=== PATIENT | male | born 2000 | race Caucasian/White ===

== ENCOUNTER 2020-11-11 03:29 | Emergency (ER) | payer MEDICAID, OTHER ==
[~2020-11-11] VITALS: Ht 182.9 cm; Wt 65.8 kg
[2020-11-11 04:37] LABS: Urine Bacteria FEW /hpf (None Seen); Urine Blood Negative /uL (Negative); Urine Mucus FEW (None Seen); Urine Specific Gravity 1.023 (1.001-1.035); Urine WBC 3 /hpf (0 - 3)
[2020-11-11 07:48] LABS: Basophils # (auto) 0 10 ^3/uL (0-0.2); Basophils % (auto) 0.1 % (0.0-2.0); Eosinophils # (auto) 0 10 ^3/uL (0-0.8); Hematocrit 45.7 % (41.0-53.0); Hemoglobin 15.2 g/dL (13.5-17.5); Lymphocytes # (auto) 1.1 10 ^3/uL (0.4-5.4); Lymphocytes % (auto) 5.2 % (10.0-50.0); Mean Corpuscular Hemoglobin 28.1 pg (28.0-32.0); Mean Corpuscular Hgb Conc. 33.3 g/dL (32.0-36.0); Mean Corpuscular Volume 84.3 fL (80.0-100.0); Monocytes # (auto) 1.1 10 ^3/uL (0-1.3); Neutrophils # (auto) 19.1 10 ^3/uL (1.6-8.6); Neutrophils % (auto) 89.7 % (37.0-80.0); Nucleated Red Blood Cells % 0.1 %; Red Blood Cells 5.42 10^6/uL (4.5-5.90); Red Cell Distribution Width 12.8 % (11.8-14.3); White Blood Cell 21.3 10^3/uL (4.4-10.8)
[2020-11-11 08:30] LABS: Albumin 4.4 g/dL (3.4-5.0); Calcium 9.5 mg/dL (8.5-10.1); Potassium 4.1 mmol/L (3.5-5.1)
[2020-11-11 08:42] LABS: Bilirubin, Total 0.8 mg/dL (0.2-1.0); Total Protein 8.1 g/dL (6.4-8.2)
[2020-11-11] MEDS ORDERED: KETOROLAC TROMETH 30 MG/ML 1ML VIAL IV ONE (08:45)
[2020-11-11] MEDS ORDERED: SODIUM CHLORIDE 0.9% 1,000 ML IV ONE (08:45)
[2020-11-11] MEDS ORDERED: METOCLOPRAMIDE HCL 5MG/ml INJ 2ml VIAL IV ONE (08:45)
[2020-11-11] MEDS ORDERED: SODIUM CHLORIDE 0.9% 500 ML IVB ONE (08:45)
[2020-11-11] MEDS: cefTRIAXone 1GM/50ML D5W 50 ML IV ONE ×2 (12:56→12:57)
[2020-11-11] MEDS ORDERED: cefTRIAXone 1GM/50ML D5W 50 ML IV ONE (13:00)
[2020-11-11 14:00] VITALS: BP 120/64
== END 2020-11-11 14:51 | disposition home or self-care (01) ==
LOC: ER 03:29
DX: N13.30 Unspecified hydronephrosis (principal); N20.2 Calculus of kidney with calculus of ureter; D72.828 Other elevated white blood cell count; Z20.822 Contact with and (suspected) exposure to COVID-19; Z87.19 Personal history of other diseases of the digestive system
CPT/HCPCS: 36415; 74176; 80053; 81001; 85025; 87426; 96361; 96365; 96375; 99285; J0696; J1885; J2765; J7030; J7040

== ENCOUNTER 2021-03-24 09:18 | Emergency (ER) | payer MEDICAID ==
[~2021-03-24] VITALS: Ht 182.9 cm; Wt 65.8 kg
[2021-03-24 09:22] VITALS: BP 130/82
[2021-03-24 10:18] LABS: Urine Bacteria NONE SEEN /hpf (None Seen); Urine Blood Negative /uL (Negative); Urine WBC 1 /hpf (0 - 3)
== END 2021-03-24 14:43 | disposition home or self-care (01) ==
LOC: ER 09:18
DX: N48.29 Other inflammatory disorders of penis (principal); Z87.442 Personal history of urinary calculi
CPT/HCPCS: 81001

== ENCOUNTER 2023-06-20 18:18 | Emergency (ER) | payer OTHER, MEDICAID ==
[~2023-06-20] VITALS: Ht 182.9 cm; Wt 68.7 kg
[2023-06-20 20:10] VITALS: BP 115/83; PULSE 92; RESP 16; TEMP 97.1; O2SAT 96
== END 2023-06-20 20:09 | disposition left against medical advice (07) ==
LOC: ER 18:18
DX: S16.1XXA Strain of muscle, fascia and tendon at neck level, initial encounter (principal); S09.90XA Unspecified injury of head, initial encounter; W17.89XA Other fall from one level to another, initial encounter; Y93.89 Activity, other specified; Y92.89 Other specified places as the place of occurrence of the external cause; Y99.8 Other external cause status
CPT/HCPCS: 70450; 72125

== ENCOUNTER 2023-10-27 01:01 | Emergency (ER) | payer MEDICAID, OTHER ==
[~2023-10-27] VITALS: Ht 182.9 cm; Wt 67.0 kg
[2023-10-27 01:41] LABS: Eosinophils # (auto) 0.2 10 ^3/uL (0-0.8); Eosinophils % (auto) 2.4 % (0.0-7.0)
[2023-10-27 01:42] LABS: Basophils # (auto) 0.1 10 ^3/uL (0-0.2); Basophils % (auto) 0.6 % (0.0-2.0); Hematocrit 52.1 % (41.0-53.0); Hemoglobin 18.2 g/dL (13.5-17.5); Lymphocytes # (auto) 3.1 10 ^3/uL (0.4-5.4); Lymphocytes % (auto) 30.5 % (10.0-50.0); Mean Corpuscular Hemoglobin 29.4 pg (28.0-32.0); Mean Corpuscular Volume 84.1 fL (80.0-100.0); Monocytes % (auto) 9.9 % (0.0-12.0); Neutrophils # (auto) 5.7 10 ^3/uL (1.6-8.6); Neutrophils % (auto) 56.6 % (37.0-80.0); Nucleated Red Blood Cells % 0.1 %; Platelet Count (auto) 436 10^3/uL (140-450); Red Cell Distribution Width 12.6 % (11.8-14.3); White Blood Cell 10.1 10^3/uL (4.4-10.8)
[2023-10-27 01:58] LABS: Alanine Aminotransferase 170 U/L (7-40); Albumin 5.4 g/dL (3.2-4.8); Alkaline Phosphatase 92 U/L (46-116); Anion Gap 6 (5-15); Aspartate Aminotransferase 127 U/L (13-40); Bilirubin, Total 1.6 mg/dL (0.2-1.0); Blood Urea Nitrogen 19 mg/dL (9-23); Carbon Dioxide 22 mmol/L (20-30); Chloride 100 mmol/L (98-107); Glucose 104 mg/dL (74-106); Lipase 69 U/L (12-53); Potassium 3.7 mmol/L (3.5-5.1); Sodium 128 mmol/L (136-145); Total Protein 9.4 g/dL (5.7-8.2)
[2023-10-27 02:12] LABS: Urine Bacteria None Seen /hpf (None Seen)
[2023-10-27 02:40] LABS: Urine Blood 1+ /uL (Negative); Urine Clarity Clear (Clear); Urine Color Yellow (Yellow); Urine Mucus FEW (None Seen); Urine Protein, UAD 1+ (Negative); Urine Specific Gravity 1.027 (1.001-1.035); Urine Sperm PRESENT /hpf (None Seen); Urine Urobilinogen Normal (Negative); Urine WBC 3 /hpf (0 - 3)
[2023-10-27 03:10] VITALS: BP 138/94; PULSE 95; RESP 18; TEMP 98.7; O2SAT 97
[2023-10-27] MEDS: SODIUM CHLORIDE 0.9% 2,000 ML IV ONE (03:26)
[2023-10-27] MEDS: levoFLOXacin 500MG 100 ML IV ONE (05:00)
[2023-10-27] MEDS: ONDANSETRON HCL 4 MG/2 ML VIAL IV ONE (05:09)
[2023-10-27] MEDS: metroNIDAZOLE 500MG/100ML 100 ML IV ONE (05:09)
[2023-10-27] MEDS ORDERED: ZOFR4T SL (05:12)
[2023-10-27] MEDS ORDERED: METR-344 PO (05:12)
[2023-10-27] MEDS ORDERED: LEVO500T91 PO (05:13)
[2023-10-27] MEDS ORDERED: HYDR-4902 PO (05:13)
[2023-10-27] MEDS: HYDROcodone-ACET 5/325MG TAB PO ONE (05:24)
== END 2023-10-27 06:45 | disposition home or self-care (01) ==
LOC: ER 01:01
DX: K52.9 Noninfective gastroenteritis and colitis, unspecified (principal); N20.0 Calculus of kidney; Z98.890 Other specified postprocedural states
CPT/HCPCS: 36415; 74176; 80053; 81001; 83690; 85025; 96361; 96365; 96368; 96375; 99285; J1956; J2405; J3490; J7030